=== PATIENT | male | born 1975 | race Caucasian/White ===

== ENCOUNTER 2017-06-03 16:40 | Emergency (ER) | payer OTHER ==
[2017-06-03 16:52] VITALS: PULSE 81; O2SAT 98
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
[2017-06-03 18:27] VITALS: BP 133/86; RESP 16; TEMP 97.9
== END 2017-06-03 18:27 | disposition home or self-care (01) ==
LOC: EEVIPCON 16:40
DX: S02.2XXA Fracture of nasal bones, initial encounter for closed fracture (principal); Y04.0XXA Assault by unarmed brawl or fight, initial encounter; Y92.149 Unspecified place in prison as the place of occurrence of the external cause